=== PATIENT | male | born 1995 | race Caucasian/White ===

== ENCOUNTER 2017-04-27 21:54 | Emergency (ER) | payer OTHER ==
[~2017-04-27] VITALS: Ht 185.4 cm; Wt 87.2 kg
[2017-04-27 21:55] VITALS: TEMP 37.3; Ht 185.4 cm; Wt 87.2 kg
[2017-04-27] MEDS ORDERED: KETOROLAC TROMETHAMINE 60 MG/2 ML VIAL IM STA (22:13)
[2017-04-27] MEDS ORDERED: MoRPHine SULFATE 10 MG/ML CARP/VIAL IM STA (22:13)
[2017-04-27] MEDS ORDERED: ONDANSETRON 4MG OD TAB PO ONE (22:15)
[2017-04-27] MEDS ORDERED: OXYC1TAB3 PO ×2 (23:06→23:30)
[2017-04-27] MEDS ORDERED: BACITRACIN OINT 15 GM TUBE EXT ONE (23:15)
[2017-04-27] MEDS ORDERED: OXYCODONE IR HOME PACK PO ONE (23:15)
[2017-04-27 23:21] VITALS: BP 147/98; PULSE 68; O2SAT 98
--- NOTE | 2017-04-28 01:33 | EMERGENCY ROOM VISIT NOTE ---
History First contact with patient: 22:09 Chief Complaint: BURN (MINOR) Stated Complaint: BURN TO LEFT FOOT AND RT ANKLE-WC History of Present Illness The patient is a 21 year old male who presents to the Emergency Room with complaints of a burn to his left ankle and right foot. 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 The patient reports peeling of the burn on his left ankle. He reports a very small insignificant burn to the right foot as well. He rates his discomfort a 9 out of 10. Tetanus immunization is up-to-date. Review of Systems 10 system review was performed and was negative except for pertinent positives and negatives as indicated in history of present illness Past Medical/Surgical History Medical Problems: (1) Broken wrist Family History FH: cancer Social History Smoking Status: Current Every Day Smoker Alcohol Use: occasionally Marital Status: single Housing Status: lives with friends Occupation Status: employed Current/Historical Medications Scheduled PRN Oxycodone Ir (Roxicodone Ir), 1-2 TAB PO Q4H PRN for Pain Physical Exam Vital Signs Date Time Temp Pulse Resp B/P (MAP) Pulse Ox O2 Delivery O2 Flow Rate FiO2 04/27/17 23:21 68 18 147/98 98 Room Air 04/27/17 21:55 95 Room Air 04/27/17 21:55 37.3 94 18 131/90 96 Room Air Pain Rating (0-10): 5.0 Physical Exam CONSTITUTIONAL: Healthy and well nourished. Alert and oriented X 3 with positive affect. HEENT: Normocephalic, atraumatic. Pupils equal, round and reactive. NECK: Full active range of motion without discomfort. MUSCULOSKELETAL: Examination shows a peeling blister on the left medial and anterior ankle region. Body surface area is approximately 2%. He has a very small first-degree burn on the dorsal right foot of less than 1% body surface area. Pedal pulses are intact bilaterally. INTEGUMENTARY: No rash or other significant dermatologic conditions noted. NEUROLOGIC: Bilateral feet and toes are sensory intact. Medical Decision & Procedures Medications Administered Medications (Trade) Dose Ordered Sig/Zion Route Start Time Stop Time Status Last Admin Dose Admin Ketorolac Tromethamine (Toradol Inj) 60 mg NOW STAT IM 04/27/17 22:13 04/27/17 22:15 DC 04/27/17 22:26 60 MG Ondansetron HCl (Zofran Odt) 4 mg ONE ONCE PO 04/27/17 22:15 04/27/17 22:16 DC 04/27/17 22:25 4 MG Morphine Sulfate (MoRPHine SULFATE INJ) 10 mg NOW STAT IM 04/27/17 22:13 04/27/17 22:15 DC 04/27/17 22:26 10 MG Oxycodone HCl (Roxicodone Immediate Rel 5MG Home Pack) 1 homepack UD ONCE PO 04/27/17 23:15 04/27/17 23:16 DC 04/27/17 23:20 1 HOMEPACK Bacitracin (Bacitracin Oint) 1 appln NOW ONCE EXT 04/27/17 23:15 04/27/17 23:16 DC 04/27/17 23:20 1 APPLN Procedure Sharp debridement was performed by myself after the patient was administered IM analgesics. A bacitracin gauze with Adaptic dressing was personally applied by me. ED Course Patient history and physical exam were performed. Nurse's notes were reviewed. Vital signs were reviewed and were normal. The patient was administered IM Toradol and morphine, along with Zofran ODT. After allowing approximately 20 minutes for the medication to work, the left ankle burn was sharply debrided. A bacitracin dressing and Adaptic gauze was applied by me. The patient was instructed to follow-up with his Worker's Compensation physician in 2 days for wound reassessment, or return to the emergency department if he is unable to secure this appointment. The patient was provided a home pack and prescription for OxyIR 5 mg. He was also instructed to alternate ibuprofen and Tylenol for baseline pain relief. The patient was happy with plan of care, voiced understanding of all discharge instructions, and rated his pain a 4 out of 10 at the conclusion of my exam. [facility] [place] Drug Monitoring Program Search Results: patient reviewed within database, no issues identified Medication Reconcilliation Current Medication List: was personally reviewed by me Blood Pressure Screening Patient's blood pressure: Normal blood pressure Impression Primary Impression: Burn of ankle, left, second degree Additional Impressions: Work related injury Burn of foot, right, first degree Departure Information Dispostion Home / Self-Care Condition GOOD Prescriptions Oxycodone Ir (Roxicodone Ir) 5 Mg Tab 1-2 TAB PO Q4H Y for Pain, #24 TAB For Initial Treatment Prov: Asa Paulino PA 04/27/17 Forms HOME CARE DOCUMENTATION FORM, IMPORTANT VISIT INFORMATION Patient Instructions My [facility] Additional Instructions Clean wound daily with soap and water, dry thoroughly then apply an antibiotic ointment and dressing. Do not soak wound or loud dressing to remain wet. Ibuprofen 800 mg and/or Tylenol 1000 mg every 8 hours. You may also alternate these medications for more effective pain relief: Ibuprofen --4 HRS--> Tylenol --4 HRS--> ibuprofen --4 HRS--> Tylenol .... OxyIR if needed for worse pain. Do not drink alcohol or drive while taking OxyIR. Follow-up with your Worker's Compensation physician in 48 hours for burn recheck , or return to the emergency department if unable to schedule this appointment. Problem Qualifiers Primary Impression: Burn of ankle, left, second degree Encounter type: initial encounter Qualified Codes: T25.212A - Burn of second degree of left ankle, initial encounter Additional Impressions: Burn of foot, right, first degree Encounter type: initial encounter Qualified Codes: T25.121A - Burn of first degree of right foot, initial encounter
== END 2017-04-27 23:35 | disposition home or self-care (01) ==
LOC: C.EDB 21:55 → C.EDD 23:35
DX: T25.212A Burn of second degree of left ankle, initial encounter (principal); T25.121A Burn of first degree of right foot, initial encounter; T31.0 Burns involving less than 10% of body surface; X10.2XXA Contact with fats and cooking oils, initial encounter; Y92.89 Other specified places as the place of occurrence of the external cause; Y99.0 Civilian activity done for income or pay; F17.210 Nicotine dependence, cigarettes, uncomplicated; Z80.9 Family history of malignant neoplasm, unspecified